=== PATIENT | female | born 1965 | race Caucasian/White ===

== ENCOUNTER 2020-05-13 12:38 | Outpatient (CLI) | payer OTHER, SELFPAY ==
--- NOTE | ~2020-05-13 | US_ITS ---
EXAMINATION: US pelvic complete w TV DATE: 05/13/2020 13:36 INDICATION: Postmenopausal bleeding Comparison:No prior studies for comparison. TECHNIQUE: Multiple transabdominal and endovaginal sonographic images of the pelvis performed. FINDINGS: The uterus measures 7.4 x 6.1 x 4.3 cm. There is a hyperechoic uterine mass measuring up to 5.8 cm, compatible with fibroid. The endometrial complex is not well visualized. The right ovary contains a complicated 3.3 cm right ovarian cyst. Left ovary not visualized. There is no free fluid in the pelvis. There are no abnormal masses seen on either side. IMPRESSION: 1. Uterine fibroid measuring up to 5.8 cm. 2: Complicated 3.3 cm right ovarian cyst. Reviewed, dictated and finalized at location B. [facility]
== END 2020-05-13 12:39 | disposition home or self-care (01) ==
PROVIDERS: PCP Physician Assistant; Visit Provider Obstetrics & Gynecology
DX: N95.0 Postmenopausal bleeding (principal); D25.9 Leiomyoma of uterus, unspecified; N83.291 Other ovarian cyst, right side
CPT/HCPCS: 76830; 76856

== ENCOUNTER 2020-06-12 14:39 | Outpatient (CLI) | payer OTHER, SELFPAY ==
--- NOTE | 2020-06-12 15:00 | ECG_ITS ---
Measurements Intervals [place] Rate: 76 P: 68 CT: 165 QRS: 30 QRSD: 81 T: 62 QT: 364 QTc: 411 Interpretive Statements SINUS RHYTHM DELAYED PRECORDIAL R/S TRANSITION BORDERLINE ECG Electronically Signed On 06-12-2020 15:04:47 [facility] APPRENTICE by Kareem Briceno D.O.
== END 2020-06-12 14:40 | disposition home or self-care (01) ==
LOC: ANHSURGERY 14:41
PROVIDERS: PCP Physician Assistant; Visit Provider Obstetrics & Gynecology
DX: E78.00 Pure hypercholesterolemia, unspecified (principal); Z01.818 Encounter for other preprocedural examination
CPT/HCPCS: 93005

== ENCOUNTER → 2020-06-15 01:50 | Outpatient (CLI) | payer OTHER, SELFPAY ==
[2020-06-15 18:53] LABS: SARS-CoV-2 RNA PCR Negative
== END ==
PROVIDERS: PCP Physician Assistant; Visit Provider Obstetrics & Gynecology
DX: Z01.812 Encounter for preprocedural laboratory examination (principal); Z20.822 Contact with and (suspected) exposure to COVID-19
CPT/HCPCS: C9803; U0003; U0005

== ENCOUNTER 2020-06-19 00:35 | Day surgery (SDC) | payer OTHER, SELFPAY ==
[2020-06-11 09:53] VITALS: BMI 26.6
--- NOTE | 2020-06-19 07:24 | PM.IMHP ---
H&P: HPI History of Present Illness Date/Time: 06/19/20 07:24 Patient with history of postmenopausal bleeding in May. She did have hot flashes and premenstrual symptoms at this time. Was not able to obtain adequate sample of endometrial lining in the office. She did have an ultrasound which did show a 5cm fibroid and unable to assess endometrial complex. There was also a 3cm complex right ovarian cyst. She denies pain. Had a normal Ca125. Recommended to repeat ultrasound in 8 weeks. She was recommended for D and C hysteroscopy. She has been informed of risk benefits and alternatives to endometrial assessment and agrees with dilation and currettage and hysteroscopy. Chief Complaint: Postmenopausal bleeding. Review of Systems Review of Systems: All systems reviewed & are unremarkable except as noted in HPI and below Cardiovascular: Cardiovascular: Reports no additional cardiovascular complaints, Denies chest pain and Denies dyspnea Respiratory: Respiratory: Reports no additional respiratory complaints and Denies dyspnea Gastrointestinal: Gastrointestinal: Reports abdominal pain, Denies change in bowel habits, Denies diarrhea, Denies nausea and Denies vomiting Genitourinary: Genitourinary: Reports pelvic pain Musculoskeletal: Musculoskeletal: Reports back pain Integumentary/Breasts: Skin/Breast: Reports system reviewed and no additional complaints, except as docu Neurologic: Reports system reviewed and no additional complaints, except as documented PMFSH Past Medical History Medical History High cholesterol Surgical History Surgical History History of endometrial ablation History of tubal ligation Previous section Social History Social History Smoking packs per day: 0.5 Smoking cigarettes per day: 10.0 Years smoked: 20 Smoking pack-years: 10.00 Smoking status: Former smoker Tobacco type: cigarettes Smoking end date: 04/05/12 Alcohol intake: current Substance use: never Living arrangements: with family Gender identity (if verbalized by the patient): Female Spiritual care concerns: No Meds Home Medications and Allergies Home Medications Medication Instructions Recorded Confirmed Type aspirin 81 mg tablet,delayed 81 mg PO EVERY OTHER DAY 01/01/20 06/19/20 History release atorvastatin 20 mg tablet 20 mg PO DAILY 01/01/20 06/19/20 History cholecalciferol (vitamin D3) 1,250 600 mcg PO DAILY 01/01/20 06/19/20 History mcg (50,000 unit) capsule Allergies Allergy/AdvReac Type Severity Reaction Status Date / Time No Known Allergies Allergy Verified 06/19/20 10:11 Exam Const: Orientation/consciousness: oriented to person and oriented to place HENMT: Head: normal to inspection Eyes: General: appearance normal, both eyes and all related structures Resp: Effort & Inspection: normal respiratory effort Auscultation: clear to auscultation bilaterally Cardio: Rate: regular rate Rhythm: regular rhythm GI: Inspection: normal to inspection GI Palp: No Rebound tenderness present : External Female Exam: normal external appearance Speculum Exam - Vagina: normal appearance of the vagina Speculum Exam - Cervix: normal appearance of the cervix Bimanual exam- vagina & uterus: normal bimanual exam and other (uterus palpated normal size) Bimanual Exam- Adnexa, other: normal adnexae Neuro: General: oriented to person and oriented to place Cognition (Neuro): normal cognition Extrem: General: normal to inspection Psych: Appearance: grossly normal and well kempt Assessment and Plan Assessment and plan (1) Postmenopausal bleeding: Code(s): N95.0 - Postmenopausal bleeding Status: Acute Assessment and Plan: Recommend Dilation and Currettage and hysteroscopy and possible myosure if ne
[2020-06-19] MEDS: ACETAMINOPHEN 500 MG TABLET 1000 MG PO (09:47)
--- NOTE | 2020-06-19 09:50 | P.PNAN_ITS ---
Anes - Initial Pre Proc Eval Procedure: Operation Date: 06/19/20 11:00 Proposed Procedures p Hysteroscopy Dilation and Curettage - Rolly Shannon MD Date/Time: 06/19/20 09:50 Surgeon: Rolly Shannon MD Pre Op Diagnosis: Abnormal Uterine Bleeding Patient Data Age: 54 Gender: F Height: 5 ft Weight: 62 kg Allergies Allergy/AdvReac Type Severity Reaction Status Date / Time No Known Allergies Allergy Verified 06/11/20 09:54 Home Medications Medication Instructions Recorded Confirmed Type aspirin 81 mg tablet,delayed 81 mg PO EVERY OTHER DAY 01/01/20 06/12/20 History release atorvastatin 20 mg tablet 20 mg PO DAILY 01/01/20 06/12/20 History cholecalciferol (vitamin D3) 1,250 600 mcg PO DAILY 01/01/20 06/12/20 History mcg (50,000 unit) capsule Patient hx anesthesia problems: none Family hx anesthesia problems: none PMFSH Past Medical History Medical History High cholesterol Surgical History Surgical History History of endometrial ablation History of tubal ligation Previous section Social History Social History Smoking packs per day: 0.5 Smoking cigarettes per day: 10.0 Years smoked: 20 Smoking pack-years: 10.00 Smoking status: Former smoker Tobacco type: cigarettes Smoking end date: 04/05/12 Alcohol intake: current Substance use: never Living arrangements: with family Gender identity (if verbalized by the patient): Female Spiritual care concerns: No Anes - Eval Final PreProcedure Day of Procedure 06/19/20 09:50 Patient weight: normal Heart: regular rate and rhythm Lungs: clear to auscultation Airway: Mallampati scale class II Neurological: alert and oriented Last oral intake: >/= 8 hours ASA classification: II Emergent: no Anesthetic plan: proceed Anesthesia type and monitoring: general GIVS and standard monitoring Informed Consent: The patient's anesthetic plan and its attendant risks and roque efits were discussed with the patient/family/POA. Questions were solicited and answers provided to the satisfaction of the patient/family/POA.
[2020-06-19] MEDS: LACTATED RINGERS 1,000 ML 30 ML IV CONT (09:58)
[2020-06-19 10:12] VITALS: BP 121/70; PULSE 76; TEMP 36.6; O2SAT 100
--- NOTE | 2020-06-19 10:43 | WPDHPUPDATE1 ---
History and Physical Update Update Date/Time: 06/19/20 10:43 History and Physical has been reviewed, including an updated exam of the patient. There are NO changes in the patient's condition. Risks, benefits, and alternatives have been discussed and questions answered. Patient agrees to proceed with procedure.
[2020-06-19] MEDS: ceFAZolin 2 GM/D5W 50 ML 2 GM/50 ML BAG IVPB (10:57)
--- NOTE | 2020-06-19 11:30 | PM.OP ---
Procedure Note - Brief Procedure Note - Brief Date of procedure: 06/19/20 Pre-op diagnosis: Abnormal Uterine Bleeding Post-op diagnosis: same Procedure performed: Dilation and currettage and diagnostic hysteroscopy. Anesthesia: MAC and local Surgeon: Rolly Shannon MD Estimated blood loss (mL): 5 Drains: No Packing: No Pathology: yes (Scant endometrial currettings.) Complications: No immediate complications Condition: stable Disposition: same day Findings: Uterus sound to 5cm, the cavity had minimal tissue, the cavity appeared very small almost obliterated. During currettage there was good cry,
[2020-06-19 11:42] VITALS: BP 130/73; PULSE 70; RESP 16; O2SAT 100
[2020-06-19 11:57] VITALS: BP 127/68; PULSE 75; RESP 16
[2020-06-19 12:31] VITALS: BP 125/69; PULSE 67; RESP 16
--- NOTE | 2020-06-20 11:54 | PM.PROC ---
Procedure Note - Detailed Date of procedure: 06/20/20 Pre-op diagnosis: Abnormal Uterine Bleeding Post-op diagnosis: same Procedure performed: Diagnostic Hysteroscopy and Dilation and Currettage Description of procedure: After informed consent was obtained patient was taken to the operating room. Adequate IV sedation was obtained. she was placed in high lithotomy position and prepped and draped in sterile fashion. Attention was turned to the vagina. Speculum was inserted. Single-tooth tenaculum placed on anterior lip of the cervix. The uterus was sounded to 5centimeters. The cervix was dilated to a size 8 Kapadia dilator. The os finder was inserted since internal os felt constricted, atrophic. The hysteroscope was inserted. The cavity appeared small. There are no lesions or abnormal areas noted. The hysteroscope was removed and a sharp curettage was performed. On the currettage there was good cry, consistent with atrophic uterus. The uterine cavity was small. Scant tissue obtained. The tenaculum was removed hemostasis was noted at the tenaculum site. The speculum was removed. The patient tolerated the procedure well. There was a 150cc discrepancy of insufflation fluid of normal saline. Patient was taken to recovery room in stable condition the sponge count was correct x3. Anesthesia: MAC and local Surgeon: Rolly Shannon MD Estimated blood loss (mL): 5 Drains: No Packing: No Pathology: yes (endometrial currettings scant) Complications: No immediate complications Condition: stable Disposition: same day Findings: Uterus sound to 5cm, uterine cavity small, no lesions.
== END 2020-06-19 12:47 | disposition home or self-care (01) ==
PROVIDERS: PCP Physician Assistant; Visit Provider Obstetrics & Gynecology
PROC: 0U5B8ZZ Destruction of Endometrium, Via Natural or Artificial Opening Endoscopic (ICD-10-PCS; CPT 58563; principal; 2020-06-19 11:00)
DX: N95.0 Postmenopausal bleeding (principal); N85.8 Other specified noninflammatory disorders of uterus; D25.9 Leiomyoma of uterus, unspecified; N83.201 Unspecified ovarian cyst, right side; E78.00 Pure hypercholesterolemia, unspecified; Z79.82 Long term (current) use of aspirin; Z87.891 Personal history of nicotine dependence
CPT/HCPCS: 58558; 88305; 93005; A9270; C9803; J0690; J2250; J2704; J3010; J7030; J7120; U0003; U0005

== ENCOUNTER 2020-07-29 08:53 | Outpatient (CLI) | payer OTHER, SELFPAY ==
--- NOTE | ~2020-07-29 | US_ITS ---
EXAMINATION: US pelvic complete w TV DATE: 07/29/2020 09:57 INDICATION: Follow-up right ovarian cyst. Comparison:Ultrasound dated 05/13/2020 TECHNIQUE: Multiple transabdominal and endovaginal sonographic images of the pelvis performed. FINDINGS: The uterus measures 8.7 x 5.2 x 5.1 cm. The endometrial complex is not visualized. There is a uterine fibroid measuring 5.1 x 5 x 4.9 cm. The right ovary measures 3.3 x 3.1 x 3.2 cm and the left ovary is not visualized. There is normal Dop pler signal in the right ovary which contains a 2.7 cm cyst. Left ovary not visualized. There is no free fluid in the pelvis. There are no abnormal masses seen on either side. IMPRESSION: 1. 5.1 cm uterine fibroid. Endometrium not clearly delineated. 2: 2.7 cm right ovarian cyst. Reviewed, dictated and finalized at location B.
== END 2020-07-29 08:54 | disposition home or self-care (01) ==
PROVIDERS: PCP Physician Assistant; Visit Provider Obstetrics & Gynecology
DX: N83.201 Unspecified ovarian cyst, right side (principal); D25.9 Leiomyoma of uterus, unspecified
CPT/HCPCS: 76830; 76856

== ENCOUNTER 2020-12-30 09:23 | Outpatient (CLI) | payer BC, SELFPAY ==
--- NOTE | ~2020-12-30 | US_ITS ---
EXAMINATION: US pelvic complete w TV EXAM DATE: 12/30/2020 10:01 INDICATION: Ovarian cyst. TECHNIQUE: Pelvic transabdominal and transvaginal sonogram was performed. There are multiple graysca le and Doppler images available for interpretation. Comparison is made to prior examination from 07/29. FINDINGS: Uterus measures 6.5 x 4.5 x 4.5 cm, with fibroid measuring about 3 cm in the posterior donavon metrium. Endometrial stripe measures 4 mm, within normal limits. There is a nabothian cyst. There is no free pelvic fluid. Right adnexa: The ovary measures 2.8 x 2.5 x 2.9 cm and again has a cyst measuring about 2.8 cm, does not appear significantly changed. Ovarian vascular flow confirmed. Left adnexa: The ovary is not identified. There is no adnexal mass. IMPRESSION: Unchanged small right ovarian cystic lesion. Cystic ovarian neoplasm not excludable but w ould favor benign histology given stability. Consider one-year follow-up pelvic sonogram. Reviewed, dictated and finalized at location A. IMPRESSION: Unchanged small right ovarian cystic lesion. Cystic ovarian neoplas m not excludable but would favor benign histology given stability. Consider one -year follow-up pelvic sonogram.
== END 2020-12-30 09:24 | disposition home or self-care (01) ==
PROVIDERS: PCP Physician Assistant; Visit Provider Obstetrics & Gynecology
DX: N83.209 Unspecified ovarian cyst, unspecified side (principal)
CPT/HCPCS: 76830; 76856

== ENCOUNTER 2022-02-09 08:30 | Outpatient (CLI) | payer BC, SELFPAY ==
--- NOTE | ~2022-02-09 | US_ITS ---
EXAMINATION: US pelvic complete w TV DATE: 02/09/2022 09:27 INDICATION: Unspecified ovarian cyst, unspecified side. TECHNIQUE: Multiple transabdominal and transvaginal sonographic images of the pelvis were obtained. COMPARISON: Pelvis ultrasound 12/30/2020 FINDINGS: TRANSABDOMINAL ULTRASOUND: The uterus measures 7.2 x 4.1 x 5.2 cm. There is no free fluid in the pelvis. TRANSVAGINAL ULTRASOUND: The endometrial complex measures 3 mm in thickness. There is a nabothian cysts in the cervix. There i s a 3.1 cm hypoechoic intramural fibroid. The right ovary measures 1.6 x 1.4 x 1.7 cm. The left ovary measures 3.5 x 2.9 x 2.7 cm. There is a 2.6 cm cystic mass with low level echoes in left ovary, like ly a hemorrhagic cyst. IMPRESSION: 1. 3.1 cm intramural fibroid. 2. 2.6 cm hemorrhagic cyst in left ovary. Pelvis ultrasound is recommended in 6-12 weeks. Reviewed, dictated and finalized at location A. [facility] IMPRESSION: 1. 3.1 cm intramural fibroid. 2. 2.6 cm hemorrhagic cyst in left ovary. Pelvis ultrasound is recommended in 6 -12 weeks.
== END 2022-02-09 08:31 | disposition home or self-care (01) ==
PROVIDERS: PCP Physician Assistant; Visit Provider Obstetrics & Gynecology
DX: N83.202 Unspecified ovarian cyst, left side (principal)
CPT/HCPCS: 76830; 76856

== ENCOUNTER 2022-06-22 08:54 | Outpatient (CLI) | payer BC, SELFPAY ==
--- NOTE | ~2022-06-22 | US_ITS ---
Pelvic ultrasound. Clinical History: Ovarian cyst Technique: Realtime transabdominal and transvaginal scanning of the pelvis was performed. Color flow Doppler and Doppler spectral analysis were performed. Findings: The uterus is anteverted. The endometrial stripe has a thickness of 8 mm. Suspected ill-de fined fibroid present posteriorly measuring 2 cm in diameter. Questionable ill-defined anterior wall fibroid measuring 2.67 m in diameter. Cervical nabothian cyst noted. The right ovary it is not visualized. No significant right ovarian or adnexal mass is seen. The left ovary measures 2.5 x 2.6 x 2.6 cm. 2 cm left ovarian cyst noted. There is no evidence of free fluid in the cul de sac. Impression: Suspected ill-defined uterine fibroids. 2 cm left ovarian cyst. Consider annual follow-up if patient is postmenopausal. Reviewed, dictated and finalized at [facility]. Impression: Suspected ill-defined uterine fibroids. 2 cm left ovarian cyst. Consider annual follow-up if patient is postmenopausal.
== END 2022-06-22 08:55 | disposition home or self-care (01) ==
PROVIDERS: PCP Physician Assistant; Visit Provider Obstetrics & Gynecology
DX: N83.202 Unspecified ovarian cyst, left side (principal)
CPT/HCPCS: 76830; 76856

== ENCOUNTER 2022-06-23 08:52 | Outpatient (CLI) | payer BC, SELFPAY ==
--- NOTE | ~2022-06-23 | MMUS_ITS ---
US breast biopsy RT w image, MM post biopsy invasive RT EXAMINATION: US GUIDED NEEDLE BIOPSY WITH VACUUM ASSISTANCE DATE: 06/23/2022 10:10 CDT INDICATION: Right breast mass seen on recent examination. Ultrasound-guided core biopsy is requested to evaluate for malignancy. TECHNIQUE AND FINDINGS: The risks and potential benefits of the procedure were discussed with the patient, and written inform ed consent was obtained. After sterile preparation of the breast, 1% lidocaine was utilized for loca l anesthesia. 1% lidocaine with epinephrine was used for deep anesthesia. A 10G vacuum-assisted biopsy gun needle was advanced through to the outer edge of the region of inter est from a inferior approach utilizing sonographic guidance. A total of 4 tissue core samples were o btained through the lesion. An Inrad tissue marker clip was then placed at the biopsy site. Hemostas is was achieved. The patient tolerated procedure well and there was no evidence of immediate complication. The patien t was given verbal instructions partly is from the department. Right breast mammograms to document t issue marker clip placement. The tissue samples were submitted to surgical pathology for histologic a nalysis. IMPRESSION: 1. Successful ultrasound-guided vacuum-assisted biopsy of right breast mass with tissue marker place ment. Please refer to pathology report for histologic analysis. Reviewed, dictated and finalized at location A. IMPRESSION: 1. Successful ultrasound-guided vacuum-assisted biopsy of right breast mass wi th tissue marker placement. Please refer to pathology report for histologic abdirashid lysis.
== END 2022-06-23 08:53 | disposition home or self-care (01) ==
PROVIDERS: PCP Physician Assistant; Visit Provider Physician Assistant
DX: N60.21 Fibroadenosis of right breast (principal)
CPT/HCPCS: 19083; 88305; A4648

== ENCOUNTER 2023-07-19 08:45 | Outpatient (CLI) | payer BC, SELFPAY ==
--- NOTE | ~2023-07-19 | US_ITS ---
Pelvic ultrasound. Clinical History: Ovarian cyst Technique: Realtime transabdominal and transvaginal scanning of the pelvis was performed. Color flow Doppler and Doppler spectral analysis were performed. Findings: The uterus is anteverted. The endometrial stripe is poorly delineated. Myometrium is very heterogeneous. Suspected 2.5 cm mass in the posterior wall, compatible with fibroid.. The right ovary measures 2.2 x 1.6 x 1.4 cm. No significant right ovarian or adnexal mass is seen. The left ovary measures 3.1 x 2.2 x 2.6 cm. Mildly complex left ovarian cyst measures 2.1 cm in size, likely hemorrhagic cyst. No evidence for ovarian torsion. There is no evidence of free fluid in the cul de sac. Impression: 2.1 cm left ovarian hemorrhagic cyst. Heterogeneous myometrium, with suspected 2.5 cm posterior intramural fibroid. Reviewed, dictated and finalized at [facility]. Impression: 2.1 cm left ovarian hemorrhagic cyst. Heterogeneous myometrium, with suspected 2.5 cm posterior intramural fibroid.
== END 2023-07-19 08:46 | disposition home or self-care (01) ==
LOC: ANHIMG 08:47
PROVIDERS: PCP Physician Assistant; Visit Provider Obstetrics & Gynecology
DX: N83.202 Unspecified ovarian cyst, left side (principal); Z87.42 Personal history of other diseases of the female genital tract; R19.09 Other intra-abdominal and pelvic swelling, mass and lump
CPT/HCPCS: 76830; 76856